=== PATIENT | male | born 2000 | race Caucasian/White ===

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

== ENCOUNTER 2021-02-04 22:50 | Emergency (ER) | payer MEDICAID, OTHER ==
[2021-02-04 23:04] VITALS: O2SAT 95
--- NOTE | 2021-02-04 23:26 | ERPHSYRPT ---
- History of Present Illness Time Seen by Provider: 02/04/21 22:51 Source: patient Exam Limitations: no limitations Patient Subjective Stated Complaint: My legs and feet have been swelling x2-3 weeks. I've been off my lasix and prednisone x2 months or so, my mom was having trouble with the medicaid. Triage Nursing Assessment: Pt c/o swelling to bilat lower ext and feet, 4+ Bilat. Pt has nephrotic syndrome and hasn't taken his meds x2-3 months. Pt denies any pain, pedal pulses present. Physician History: Patient is here for bilateral lower extremity swelling. Parents are most afraid that patient is acute heart failure secondary to nephrotic symptoms. No falls no trauma. History of nephrotic syndrome. Patient has not been on medication for 2 to 3 months. Recently seen at another emergency department 3 days ago. Given Lasix. They have not been able to follow-up with their PCP or tool room supervisor because they have not made any appointments. No falls no trauma. No cough on my exam. Timing/Duration: week(s) Severity: moderate Modifying Factors: Improves With: medication Associated Symptoms: denies symptoms Allergies/Adverse Reactions: vancomycin Allergy (Mild, Verified 02/04/21 23:11) Home Medications: No Reportable Medications [No Reported Medications] 02/04/21 [History] Hx Tetanus, Diphtheria Vaccination/Date Given: Yes Hx Influenza Vaccination/Date Given: No Hx Pneumococcal Vaccination/Date Given: No Immunizations Up to Date: Yes Travel Risk - International Travel Have you traveled outside of the country in past 3 weeks: No - Coronavirus Screening Are you exhibiting any of the following symptoms?: Yes Symptoms: Fever, Cough: New Onset, Shortness of Breath, Vomiting/Diarrhea, Headaches/Body Aches/Fatigue Close contact with a COVID-19 positive Pt in past 14-21 Days: No - Vaccine Status Have you recieved a Covid-19 vaccination: No - Review of Systems Constitutional: No Fever, No Chills Eyes: No Symptoms Ears, Nose, & Throat: No Symptoms Respiratory: No Cough, No Dyspnea Cardiac: No Chest Pain, No Edema, No Syncope Abdominal/Gastrointestinal: No Abdominal Pain, No Nausea, No Vomiting, No Diarrhea Genitourinary Symptoms: No Dysuria Musculoskeletal: Other (Bilateral lower extremity swelling.), No Back Pain, No Neck Pain Skin: No Rash Neurological: No Dizziness, No Focal Weakness, No Sensory Changes Psychological: No Symptoms Endocrine: No Symptoms All Other Systems: Reviewed and Negative - Past Medical History Pertinent Past Medical History: Yes Neurological History: No Pertinent History ENT History: No Pertinent History Cardiac History: No Pertinent History Respiratory History: Bronchitis, Pneumonia Endocrine Medical History: No Pertinent History Musculoskeletal History: No Pertinent History GI Medical History: No Pertinent History History: Other Psycho-Social History: No Pertinent History Male Reproductive Disorders: No Pertinent History Other Medical History: nephrotic syndrome - Past Surgical History Past Surgical History: Yes Neuro Surgical History: No Pertinent History Cardiac: No Pertinent History Respiratory: No Pertinent History Gastrointestinal: No Pertinent History Genitourinary: No Pertinent History Musculoskeletal: No Pertinent History Male Surgical History: No Pertinent History - Social History Smoking Status: Never smoker Exposure to second hand smoke: Yes Drug Use: none Patient Lives Alone: No - Nursing Vital Signs Nursing Vital Signs: Initial Vital Signs Temperature 97.8 F 02/04/21 23:00 Pulse Rate 83 02/04/21 23:00 Respiratory Rate 16 02/04/21 23:00 Blood Pressure 149/116 02/04/21 23:00 O2 Sat by Pulse Oximetry 95 02/04/21 23:00 Pain Scale Pain Intensity 0 - Physical Exam General Appearance: no apparent distress, alert Eye Exam: PERRL/EOMI, eyes nml inspection Ears, Nose, Throat Exam: normal ENT inspection, TMs normal, pharynx normal, moist mucous membranes Neck Exam: normal inspection, non-tender, supple, full range of motion Respiratory Exam: normal breath sounds, lungs clear, No respiratory distress Cardiovascular Exam: regular rate/rhythm, normal heart sounds, normal peripheral pulses, other (Bilateral lower extremity swelling. 2+ pitting edema) Gastrointestinal/Abdomen Exam: soft, normal bowel sounds, No tenderness, No mass Back Exam: normal inspection, normal range of motion, No CVA tenderness, No vertebral tenderness Extremity Exam: normal inspection, normal range of motion, pelvis stable Neurologic Exam: alert, oriented x 3, cooperative, normal mood/affect, nml cerebellar function, nml station & gait, sensation nml, No motor deficits Skin Exam: normal color, warm, dry, No rash Lymphatic Exam: No adenopathy SpO2: 95 - Course Nursing assessment & vital signs reviewed: Yes EKG Interpreted by Me: Sinus Rhythm Ordered Tests: Active Orders 24 hr Category Date Time Status EKG-ER Only STAT Care 02/04/21 23:22 Active IV Insertion STAT Care 02/04/21 23:22 Active CHEST 1 VIEW (PORTABLE) Routine Exams 02/05/21 Taken CBC W DIFF Stat Lab 02/04/21 23:30 Completed CMP Stat Lab 02/04/21 23:30 Completed CULTURE,URINE Stat Lab 02/05/21 00:06 Received LIPASE Stat Lab 02/04/21 23:30 Completed NT PRO BNP Stat Lab 02/04/21 23:30 Completed UA W/RFX UR CULTURE Stat Lab 02/05/21 00:06 Completed Lab/Rad Data: Laboratory Result Diagrams 02/04/21 23:30 02/04/21 23:30 Laboratory Results 02/05/21 02/04/21 02/04/21 Range/Units 00:06 23:30 23:30 WBC 7.8 (4.0-10.5) K/mm3 RBC 5.79 H (4.1-5.6) M/mm3 Hgb 16.2 (12.5-18.0) gm/dl Hct 47.1 (42-50) % MCV 81.3 (78-100) fl MCH 28.0 (26-32) pg MCHC 34.4 (32-36) g/dl RDW 13.0 (11.5-14.0) % Plt Count 416 (150-450) K/mm3 MPV 8.7 (7.5-11.0) fl Gran % 67.0 H (36.0-66.0) % Eos # (Auto) 0.09 (0-0.5) Absolute Lymphs (auto) 1.86 (1.0-4.6) Absolute Monos (auto) 0.61 (0.0-1.3) Lymphocytes % 23.9 L (24.0-44.0) % Monocytes % 7.8 (0.0-12.0) % Eosinophils % 1.2 (0.00-5.0) % Basophils % 0.1 (0.0-0.4) % Absolute Granulocytes 5.21 (1.4-6.9) Basophils # 0.01 (0-0.4) Sodium 129 L (137-145) mmol/L Potassium 3.7 (3.5-5.1) mmol/L Chloride 102 (98-107) mmol/L Carbon Dioxide 29 (22-30) mmol/L Anion Gap 2.2 L (5-15) MEQ/L BUN 13 (9-20) mg/dL Creatinine 0.97 (0.66-1.25) mg/dL Estimated GFR > 60.0 ML/MIN Glucose 97 (74-106) mg/dL Calcium 7.3 L (8.4-10.2) mg/dL Total Bilirubin < 0.10 L (0.2-1.3) mg/dL AST 25 (17-59) U/L ALT 10 (0-50) U/L Alkaline Phosphatase 99 (38-126) U/L NT-Pro-B Natriuret Pep 112 (0-450) pg/mL Serum Total Protein 5.0 L (6.3-8.2) g/dL Albumin 2.2 L (3.5-5.0) g/dL Lipase 67 (23-300) U/L Urine Color KARL (YELLOW) Urine Appearance CLOUDY (CLEAR) Urine pH 6.0 (5-6) Ur Specific [place] 1.055 (1.005-1.025) Urine Protein >=500 (Negative) Urine Ketones NEGATIVE (NEGATIVE) Urine Blood SMALL (0-5) Oscar/ul Urine Nitrite NEGATIVE (NEGATIVE) Urine Bilirubin NEGATIVE (NEGATIVE) Urine Urobilinogen NEGATIVE (0-1) mg/dL Ur Leukocyte Esterase NEGATIVE (NEGATIVE) Urine WBC (Auto) 3-5 (0-5) /HPF Urine RBC (Auto) 0-2 (0-2) /HPF U Hyaline Cast (Auto) 11-25 (0-2) /LPF U Epithel Cells (Auto) RARE (FEW) /HPF Urine Bacteria (Auto) FEW (NEGATIVE) /HPF Urine Mucus (Auto) SLIGHT (NEGATIVE) /HPF Urine Culture Reflexed YES (NO) Urine Glucose 50 (NEGATIVE) mg/dL - Progress Progress: improved Progress Note: 02/04/21 23:57 Differential diagnosis includes worsening nephrotic syndrome, acute renal failure, infection, pneumonia. We will obtain basic labs, EKG, chest x-ray, BMP, UA looking for protein 02/05/21 00:46 EKG shows no abnormality. Patient's labs demonstrate mild exacerbation of his nephrotic syndrome. Patient has protein in his urine, no LUANA, no UTI, no signs of infection. Mildly low sodium at 129. On chest x-ray possibly some small pleural effusions without overall pulmonary edema or signs of heart failure. 02/05/21 00:47 Patient's BNP is normal. 112. Although patient is borderline tonight I do feel he is safe to go home with close outpatient follow-up. He does now have home Lasix from previous ER visit. 40 mg once a day. I encouraged him to continue to take these until his follow-up appointment next Thursday. He states he does have enough medication to get him through. I instructed the patient on the importance of a strict treatment regime. Again, patient has been out of medication for 2 to 3 months and follow-up with the PCP. Therefore, him and I went over the barriers to care tonight. I do feel he can get safe outpatient care. Strict return precautions were given. He will return here for any new or changing symptoms. Counseled pt/family regarding: lab results, diagnosis, need for follow-up, rad results - Departure Departure Disposition: Home Clinical Impression: Nephrotic syndrome Condition: Stable Critical Care Time: No Referrals: DOCTOR,NO FAMILY [Primary Care Provider] - Instructions: Dependent Edema (DC)
[2021-02-04 23:38] LABS: Absolute Neutrophil Ct (ANC) 5.21 (1.4-6.9); BASOPHIL % 0.1 % (0.0-0.4); Basophil (Absolute #) 0.01 (0-0.4); Eosinophil % 1.2 % (0.00-5.0); Eosinophil (Absolute #) 0.09 (0-0.5); Hematocrit 47.1 % (42-50); Hemoglobin 16.2 gm/dl (12.5-18.0); Lymphocyte (Absolute #) 1.86 (1.0-4.6); Lymphocytes % 23.9 % (24.0-44.0); Mean Cell Volume 81.3 fl (78-100); Mean Corpuscular Hgb Concent. 34.4 g/dl (32-36); Mean Platelet Volume 8.7 fl (7.5-11.0); Monocyte (Absolute #) 0.61 (0.0-1.3); Monocytes % 7.8 % (0.0-12.0); Platelet Count 416 K/mm3 (150-450); Red Blood Count 5.79 M/mm3 (4.1-5.6); White Blood Count 7.8 K/mm3 (4.0-10.5)
[2021-02-04 23:58] LABS: ALBUMIN 2.2 g/dL (3.5-5.0); ALKALINE PHOSPHATASE 99 U/L (38-126); ANION GAP 2.2 MEQ/L (5-15); BILIRUBIN,TOTAL < 0.10 mg/dL (0.2-1.3); BLOOD UREA NITROGEN 13 mg/dL (9-20); CHLORIDE 102 mmol/L (98-107); Calcium 7.3 mg/dL (8.4-10.2); Carbon Dioxide 29 mmol/L (22-30); Creatinine 1 0.97 mg/dL (0.66-1.25); EST GLOMERULAR FILTRATION RATE > 60.0 ML/MIN; Glucose 97 mg/dL (74-106); LIPASE 67 U/L (23-300); NT PRO BNP 112 pg/mL (0-450); Potassium 3.7 mmol/L (3.5-5.1); SGOT/AST 25 U/L (17-59); SGPT/ALT 10 U/L (0-50); SODIUM 129 mmol/L (137-145)
[2021-02-05 00:37] LABS: Appearance CLOUDY (CLEAR); Bacteria FEW /HPF (NEGATIVE); Bilirubin NEGATIVE (NEGATIVE); Blood SMALL Ery/ul (0-5); Epithelial Cells RARE /HPF (FEW); Glucose 50 mg/dL (NEGATIVE); Ketones NEGATIVE (NEGATIVE); Leukocyte Esterase NEGATIVE (NEGATIVE); Mucus SLIGHT /HPF (NEGATIVE); Nitrite NEGATIVE (NEGATIVE); Protein,Urine Dip >=500 (Negative); RBC 0-2 /HPF (0-2); Specific Gravity 1.055 (1.005-1.025); Urobilinogen NEGATIVE mg/dL (0-1)
[2021-02-05 00:51] VITALS: BP 149/90; PULSE 88
--- NOTE | 2021-02-05 08:58 | XRAY ---
Indication: Volume overload. Comparison: August 24, 2020. Portable apical lordotic chest demonstrates clearing of previous right base infiltrate/atelectasis/effusion with minimal residual. Left effusion cleared. Remaining heart, lungs, and bony thorax unremarkable again with stable left upper lobe subsegmental atelectasis/scarring. No new cardiopulmonary abnormalities.
== END 2021-02-05 00:55 | disposition home or self-care (01) ==
LOC: ED 22:50
DX: N04.0 Nephrotic syndrome with minor glomerular abnormality (principal)
CPT/HCPCS: 36415; 71045; 80053; 81001; 83690; 83880; 85025; 87086; 93005; 99284